=== PATIENT | male | born 1990 | race Hispanic/Latino ===

== ENCOUNTER 2021-11-29 19:15 | Emergency (ER) | payer OTHER, SELFPAY ==
[2021-11-29 19:21] VITALS: BP 113/65; PULSE 60; RESP 16; TEMP 37.3; O2SAT 100
--- NOTE | 2021-11-29 19:32 | ED.WOUNDLAC ---
HPI - Wound/Laceration General Chief Complaint: Wound/Laceration Stated Complaint: Facial injury Time Seen by Provider: 11/29/21 19:23 Source: patient and family Mode of arrival: ambulatory Limitations: no limitations History of Present Illness HPI narrative: Patient presents today complaining of an injury to the left external nose occurred at work approximately 1.5 weeks ago. Patient does not know exactly what happened, but felt he did gain sensation at his nose. He has this wound that has been healing, but has continued to appear reddened and is painful to the touch. He has not tried any [id number] treatment prior to arrival. He is not up-to-date on his tetanus vaccine. Related Data Allergies Allergy/AdvReac Type Severity Reaction Status Date / Time No Known Allergies Allergy Verified 11/29/21 19:24 Review of Systems Review of Systems: CONSTITUTIONAL: Denies body aches, fever, chills, or sweats. EYES: Denies visual changes, redness, or discharge. ENT: Denies rhinorrhea, congestion, sore throat, or otalgia. CARDIOVASCULAR: Denies chest pain, palpitations, or edema. RESPIRATORY: Denies cough or dyspnea. GASTROINTESTINAL: Denies abdominal pain, nausea, vomiting, or diarrhea. GENITOURINARY: Denies dysuria or hematuria. SKIN: Denies rash, itching. + Wound to left external nose MUSCULOSKELETAL: Denies back pain, joint pain, or myalgia. NEUROLOGIC: Denies headache, numbness, tingling, or weakness. PSYCH: Denies depression or anxiety. PMFSH Comments At time of signature, I have reviewed and agree with nursing past medical, surgical, social and family history unless otherwise noted. Please see nursing chart for further information. There is no relevant family history pertinent to the presenting complaint Exam Narrative: GENERAL: Well-appearing, well-nourished, and in no acute distress. HEAD: Normocephalic, atraumatic. EYES: EOMI. No redness or drainage. Conjunctivae normal. ENT: Mucous membranes pink and moist. Nares clear. 3mm erythematous tissue that extends from the surface of the skin. No erythema to the surrounding tissue. No induration. This protruding tissue is tender to palpation and somewhat firm. NECK: Normal AROM. CHEST: No respiratory distress. EXTREMITIES: Normal range of motion. No edema. SKIN: Warm, dry, no rash. Capillary refill normal. Normal skin turgor. NEURO: No focal deficits. Alert and oriented x3. Gait steady. PSYCH: Normal affect. No signs of depression or anxiety. Course Course Level of Care: Express Care Visit Vital Signs Vital signs: Vital Signs Temperature 99.1 F 11/29/21 19:21 Pulse Rate 60 11/29/21 19:21 Respiratory Rate 16 11/29/21 19:21 Blood Pressure 113/65 11/29/21 19:21 Pulse Oximetry 100 11/29/21 19:21 Oxygen Delivery Room Air 11/29/21 19:21 Temperature 99.1 F 11/29/21 19:21 Pulse Rate 60 11/29/21 19:21 Respiratory Rate 16 11/29/21 19:21 Blood Pressure 113/65 11/29/21 19:21 Pulse Oximetry 100 11/29/21 19:21 Oxygen Delivery Room Air 11/29/21 19:21 Reviewed MDM - Wound/Laceration Differential Diagnosis Differential diagnosis: Likely laceration, abscess, abrasion and avulsion of skin Critical Care Time Critical Care Time Critical Care Time: No Discharge Plan Discharge Clinical Impression: Open wound of nose Patient Disposition: Home, Self-Care Condition: Stable Instructions: Antibiotic Form Additional Instructions: Please take Keflex as prescribed until gone. Follow-up with a coding consultant if your wound does not heal. Take Tylenol or ibuprofen for pain. Prescriptions: New cephalexin 500 mg capsule 500 mg PO Q6H 7 Days Qty: 28 0RF Follow-up/Referrals: UNKNOWN,DOCTOR [Primary Care Provider] - Time of Disposition: 19:41
[2021-11-29] MEDS: TETANUS,DIPHTHERIA,AC PERTUSSIS ADULT (0.5 ML) BOOSTRIX IM (19:47)
== END 2021-11-29 19:52 | disposition home or self-care (01) ==
PROVIDERS: Emergency Provider Nurse Practitioner
DX: S01.20XA Unspecified open wound of nose, initial encounter (principal); X58.XXXA Exposure to other specified factors, initial encounter; Z23 Encounter for immunization
CPT/HCPCS: 90471; 90715; 99213; G0463